=== PATIENT | male | born 1995 | race Caucasian/White ===

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

== ENCOUNTER 2019-01-14 02:35 | Emergency (ER) | payer OTHER ==
[~2019-01-14] VITALS: Ht 185.4 cm; Wt 128.0 kg
--- NOTE | 2019-01-14 02:43 | ED.ADGEN ---
Past History Past Medical History: No Pertinent History, Anxiety, Arrhythmia, Bipolar, Depression (BELEM BARAJAS MD) Past Surgical History: No Surgical History (BELEM BARAJAS MD) Smoking: Non-smoker Alcohol Use: None Drug Use: None (BELEM BARAJAS MD) Adult General Chief Complaint Chief Complaint ".. I was just doing stuff on my computer .. and I got a fast heart rate.. and some chest pain.. it was 7-.. it is only 3/10 now.. here in the center of my chest.. " (BELEM BARAJAS MD) HPI HPI Patient is a 23 year old male who presents with central chest pain. No radiation. Some pleuritic component. No hx of trauma. No hx cough. Pt. has hx of SVT- which he take Metoprolol . Pt. has been compliant with his Metoprol. Pt. normally follow with Dr. Newell. (BELEM BARAJAS MD) Review of Systems Review of Systems Constitutional: Denies fever or chills [] Eyes: Denies change in visual acuity, redness, or eye pain [] HENT: Denies nasal congestion or sore throat [] Respiratory: complaints of shortness of breath [] Cardiovascular: No additional information not addressed in HPI [] GI: Denies abdominal pain, nausea, vomiting, bloody stools or diarrhea [] : Denies dysuria or hematuria [] Musculoskeletal: Denies back pain or joint pain [] Integument: Denies rash or skin lesions [] Neurologic: Denies headache, focal weakness or sensory changes [] Endocrine: Denies polyuria or polydipsia [] All other systems were reviewed and found to be within normal limits, except as documented in this note. (BELEM BARAJAS MD) Family History Family History Sister has hx WPW (BELEM BARAJAS MD) Current Medications Current Medications Current Medications Medications (Trade) Dose Ordered Sig/Dana Start Time Stop Time Status Last Admin Dose Admin Enoxaparin Sodium (Lovenox 120mg Syringe) 120 mg 1X ONCE 01/14/19 04:45 01/14/19 04:46 DC 01/14/19 04:35 120 MG Info (Do NOT chart on this entry -- for MONITORING) 1 each PRN DAILY PRN 01/14/19 05:00 01/16/19 04:59 Iohexol (Omnipaque 350 Mg/ml) 100 ml 1X ONCE 01/14/19 05:00 01/14/19 05:01 DC 01/14/19 04:58 100 ML Ketorolac Tromethamine (Toradol 30mg Vial) 30 mg 1X ONCE 01/14/19 03:00 01/14/19 03:01 DC 01/14/19 03:14 30 MG Lactated Ringer's 1,000 ml @ 1,000 mls/hr Q1H 01/14/19 03:00 01/14/19 03:59 DC 01/14/19 03:14 1,000 MLS/HR Lorazepam (Ativan) 1 mg 1X ONCE 01/14/19 03:00 01/14/19 03:01 DC 01/14/19 03:14 1 MG (RIOS BYRNE DO) Current Medications See Nursing for home meds (BELEM BARAJAS MD) Allergies Allergies Allergies Coded Allergies Type Severity Reaction Last Updated Verified Sulfa (Sulfonamide Antibiotics) Allergy Intermediate Hives 11/01/14 Yes (RIOS BYRNE DO) Physical Exam Physical Exam Constitutional: Well developed, well nourished, moderate acute emotional distress, non-toxic appearance. [] HENT: Normocephalic, atraumatic, bilateral external ears normal, oropharynx moist, no oral exudates, nose normal. [] Eyes: PERRLA, EOMI, conjunctiva normal, no discharge. [] Neck: Normal range of motion, no tenderness, supple, no stridor. [] Cardiovascular:Heart rate regular rhythm, no murmur [] Lungs & Thorax: Bilateral breath sounds clear to auscultation [] Abdomen: Bowel sounds normal, soft, no tenderness, no masses, no pulsatile masses. [] Skin: Warm, dry, no erythema, no rash. [] Back: No tenderness, no CVA tenderness. [] Extremities: No tenderness, no cyanosis, no clubbing, ROM intact, no edema. [] Neurologic: Alert and oriented X 3, normal motor function, normal sensory function, no focal deficits noted. [] Psychologic: Affect anxious, judgement normal, mood normal. [] (BELEM BARAJAS MD) Current Patient Data Vital Signs Vital Signs Date Time Temp Pulse Resp B/P (MAP) Pulse Ox O2 Delivery O2 Flow Rate FiO2 01/14/19 05:36 60 18 122/66 (84) 96 Room Air 01/14/19 02:35 98.7 ([facility]) Lab Results Laboratory Tests Test 01/14/19 02:45 01/14/19 03:10 01/14/19 05:45 White Blood Count 9.0 x10^3/uL (4.0-11.0) Red Blood Count 5.16 x10^6/uL (4.30-5.70) Hemoglobin 15.5 g/dL (13.0-17.5) Hematocrit 46.4 % (39.0-53.0) Mean Corpuscular Volume 90 fL (79-100) Mean Corpuscular Hemoglobin 30 pg (25-35) Mean Corpuscular Hemoglobin Concent 33 g/dL (31-37) Red Cell Distribution Width 12.8 % (11.5-14.5) Platelet Count 244 x10^3/uL (140-400) Neutrophils (%) (Auto) 49 % (31-73) Lymphocytes (%) (Auto) 37 % (24-48) Monocytes (%) (Auto) 10 % (0-9) H Eosinophils (%) (Auto) 3 % (0-3) Basophils (%) (Auto) 1 % (0-3) Neutrophils # (Auto) 4.5 x10^3uL (1.8-7.7) Lymphocytes # (Auto) 3.4 x10^3/uL (1.0-4.8) Monocytes # (Auto) 0.9 x10^3/uL (0.0-1.1) Eosinophils # (Auto) 0.3 x10^3/uL (0.0-0.7) Basophils # (Auto) 0.1 x10^3/uL (0.0-0.2) Prothrombin Time 10.3 SEC (9.4-11.4) Prothrombin Time INR 1.0 (0.9-1.1) PTT 26 SEC (23-33) D-Dimer (Vonda) 0.56 mg/L (0.00-0.50) H Sodium Level 140 mmol/L (136-145) Potassium Level 3.6 mmol/L (3.5-5.1) Chloride Level 103 mmol/L (98-107) Carbon Dioxide Level 28 mmol/L (21-32) Anion Gap 9 (6-14) Blood Urea Nitrogen 10 mg/dL (8-26) Creatinine 0.9 mg/dL (0.7-1.3) Estimated GFR (Cockcroft-Gault) 106.5 Glucose Level 85 mg/dL (70-99) Calcium Level 9.6 mg/dL (8.5-10.1) Magnesium Level 2.3 mg/dL (1.8-2.4) Total Bilirubin 0.4 mg/dL (0.2-1.0) Direct Bilirubin 0.1 mg/dL (0.0-0.2) Aspartate Amino Transferase (AST) 33 U/L (15-37) Alanine Aminotransferase (ALT) 59 U/L (16-63) Alkaline Phosphatase 114 U/L (46-116) Creatine Kinase 328 U/L (39-308) H Troponin I Quantitative < 0.017 ng/mL (0-0.055) < 0.017 ng/mL (0-0.055) LB-Mpo-W-Type Natriuretic Peptide 19 pg/mL (0-124) Total Protein 8.2 g/dL (6.4-8.2) Albumin 4.1 g/dL (3.4-5.0) Lipase 107 U/L (73-393) Urine Collection Type Unknown Urine Color Yellow Urine Clarity Clear Urine pH 6.0 Urine Specific [place] >=1.030 Urine Protein Neg (NEG-TRACE) Urine Glucose (UA) Neg mg/dL (NEG) Urine Ketones (Stick) Neg mg/dL (NEG) Urine Blood Trace (NEG) Urine Nitrite Neg (NEG) Urine Bilirubin Neg (NEG) Urine Urobilinogen Dipstick 0.2 mg/dL (0.2 mg/dL) Urine Leukocyte Esterase Neg (NEG) Urine RBC 1-2 /HPF (0-2) Urine WBC 0 /HPF (0-4) Urine Squamous Epithelial Cells Occ /LPF Urine Bacteria 0 /HPF (0-FEW) Urine Mucus Marked /LPF Urine Opiates Screen Neg (NEG) Urine Methadone Screen Neg (NEG) Urine Barbiturates Neg (NEG) Urine Phencyclidine Screen Neg (NEG) Urine Amphetamine/Methamphetamine Neg (NEG) Urine Benzodiazepines Screen Neg (NEG) Urine Cocaine Screen Neg (NEG) Urine Cannabinoids Screen Neg (NEG) Urine Ethyl Alcohol Neg (NEG) (RIOS BYRNE DO) Lab Results Laboratory Tests Test 01/14/19 02:45 01/14/19 03:10 01/14/19 05:45 White Blood Count 9.0 x10^3/uL (4.0-11.0) Red Blood Count 5.16 x10^6/uL (4.30-5.70) Hemoglobin 15.5 g/dL (13.0-17.5) Hematocrit 46.4 % (39.0-53.0) Mean Corpuscular Volume 90 fL (79-100) Mean Corpuscular Hemoglobin 30 pg (25-35) Mean Corpuscular Hemoglobin Concent 33 g/dL (31-37) Red Cell Distribution Width 12.8 % (11.5-14.5) Platelet Count 244 x10^3/uL (140-400) Neutrophils (%) (Auto) 49 % (31-73) Lymphocytes (%) (Auto) 37 % (24-48) Monocytes (%) (Auto) 10 % (0-9) H Eosinophils (%) (Auto) 3 % (0-3) Basophils (%) (Auto) 1 % (0-3) Neutrophils # (Auto) 4.5 x10^3uL (1.8-7.7) Lymphocytes # (Auto) 3.4 x10^3/uL (1.0-4.8) Monocytes # (Auto) 0.9 x10^3/uL (0.0-1.1) Eosinophils # (Auto) 0.3 x10^3/uL (0.0-0.7) Basophils # (Auto) 0.1 x10^3/uL (0.0-0.2) Prothrombin Time 10.3 SEC (9.4-11.4) Prothrombin Time INR 1.0 (0.9-1.1) PTT 26 SEC (23-33) D-Dimer (Vonda) 0.56 mg/L (0.00-0.50) H Sodium Level 140 mmol/L (136-145) Potassium Level 3.6 mmol/L (3.5-5.1) Chloride Level 103 mmol/L (98-107) Carbon Dioxide Level 28 mmol/L (21-32) Anion Gap 9 (6-14) Blood Urea Nitrogen 10 mg/dL (8-26) Creatinine 0.9 mg/dL (0.7-1.3) Estimated GFR (Cockcroft-Gault) 106.5 Glucose Level 85 mg/dL (70-99) Calcium Level 9.6 mg/dL (8.5-10.1) Magnesium Level 2.3 mg/dL (1.8-2.4) Total Bilirubin 0.4 mg/dL (0.2-1.0) Direct Bilirubin 0.1 mg/dL (0.0-0.2) Aspartate Amino Transferase (AST) 33 U/L (15-37) Alanine Aminotransferase (ALT) 59 U/L (16-63) Alkaline Phosphatase 114 U/L (46-116) Creatine Kinase 328 U/L (39-308) H Troponin I Quantitative < 0.017 ng/mL (0-0.055) < 0.017 ng/mL (0-0.055) EJ-Gpc-N-Type Natriuretic Peptide 19 pg/mL (0-124) Total Protein 8.2 g/dL (6.4-8.2) Albumin 4.1 g/dL (3.4-5.0) Triglycerides Level 73 mg/dL (0-150) Cholesterol Level 171 mg/dL (0-200) LDL Cholesterol, Calculated 120 mg/dL (0-100) H VLDL Cholesterol, Calculated 14 mg/dL (0-40) Non-HDL Cholesterol Calculated 134 mg/dL (0-129) H HDL Cholesterol 37 mg/dL (40-60) L Cholesterol/HDL Ratio 4.0 Lipase 107 U/L (73-393) Thyroid Stimulating Hormone (TSH) 3.002 uIU/mL (0.358-3.740) Urine Collection Type Unknown Urine Color Yellow Urine Clarity Clear Urine pH 6.0 Urine Specific [place] >=1.030 Urine Protein Neg (NEG-TRACE) Urine Glucose (UA) Neg mg/dL (NEG) Urine Ketones (Stick) Neg mg/dL (NEG) Urine Blood Trace (NEG) Urine Nitrite Neg (NEG) Urine Bilirubin Neg (NEG) Urine Urobilinogen Dipstick 0.2 mg/dL (0.2 mg/dL) Urine Leukocyte Esterase Neg (NEG) Urine RBC 1-2 /HPF (0-2) Urine WBC 0 /HPF (0-4) Urine Squamous Epithelial Cells Occ /LPF Urine Bacteria 0 /HPF (0-FEW) Urine Mucus Marked /LPF Urine Opiates Screen Neg (NEG) Urine Methadone Screen Neg (NEG) Urine Barbiturates Neg (NEG) Urine Phencyclidine Screen Neg (NEG) Urine Amphetamine/Methamphetamine Neg (NEG) Urine Benzodiazepines Screen Neg (NEG) Urine Cocaine Screen Neg (NEG) Urine Cannabinoids Screen Neg (NEG) Urine Ethyl Alcohol Neg (NEG) (BELEM BARAJAS MD) EKG EKG I interpretation EKG shows a sinus rhythm at 76 bpm. No acute morphology[] (BELEM BARAJAS MD) Radiology/Procedures Radiology/Procedures My interpretation of CXR shows[]no acute cardiopulmonary changes (BELEM BARAJAS MD) Radiology/Procedures PROCEDURE: CT ANGIOGRAPHY CHEST INDICATION: Chest pain COMPARISON: None. TECHNIQUE: Axial CT images obtained through the chest. Intravenous contrast utilized. Angiogram 3D images processed per protocol. One or more of the following individualized dose reduction techniques were utilized for this examination: 1. Automated exposure control; 2. Adjustment of the mA and/or kV according to patient size; 3. Use of iterative reconstruction technique. FINDINGS: Groundglass opacities bilaterally. Motion limits this exam. There are some apparent cystic changes within the right lung. Partially visualized liver is low density. Nonspecific but can be seen with fatty infiltration. There are some enlarged lymph nodes in the bilateral axilla. For example one of them on the left measures up to about 11 mm short axis. Motion obscures portions of the a ascending thoracic aorta. Aorta appears nonaneurysmal. No embolus in main, right main or left main pulmonary artery. Patient motion obscures more peripheral vessels. At the right upper chest there is a region of suspected pleural thickening measuring up to about 8 mm. Similar appearance on the left. IMPRESSION: Motion limits the exam. No embolus in the main, right main or left main pulmonary artery but more peripheral evaluation is obscured by motion. Groundglass opacities of the bilateral lungs. Can be secondary to mild edema or infiltrate. There are some enlarged lymph nodes in the bilateral axilla. Given the patient's age these could be reactive in nature unless there is a history or risk factors for neoplasm. Follow-up could be obtained to ensure no growth. Liver is low density. Nonspecific but can be seen with fatty infiltration. There is some suspected pleural thickening seen bilaterally at the upper chest. (RIOS BYRNE DO) Course & Med Decision Making Course & Med Decision Making Pertinent Labs and Imaging studies reviewed. (See chart for details) Pt. requesting discharge 0600. Pt. Exhibits [employer] capacity. Pt. agrees to wait until CT result s and a repeat trop. Discussed risks and need for followup. Pt. to take a daily aspirin. Follow up with primary. Consider out pt. stress testing. Return if any concerns. Pt. endorsed to Dr. Byrne at shift change. [] (BELEM BARAJAS MD) Course & Med Decision Making Received patient at 6 AM. Agree with previous H&P. Repeat troponin was normal. There is no evidence of this being an acute coronary syndrome. CTA of the chest was negative, no evidence of pulmonary embolism. Nonspecific groundglass opacities are noted, however patient has no fever, no cough, no elevated white count so doubt that this is due to a bacterial infection at this time. No evidence of esophageal rupture. No evidence of pneumothorax. No hemo-or pneumothorax on imaging. No evidence of a dissecting thoracic aneurysm. (RIOS BYRNE DO) Final Impression Final Impression 1. Chest pain 2. History of paroxysmal SVT 3. Mild elevation in d-dimer 0.56 4. Hx Bipolar 5. Hx Anxiety[] (BELEM BARAJAS MD) Final Impression Impression: Nonspecific chest pain (RIOS BYRNE DO) Dragon Disclaimer Dragon Disclaimer This electronic medical record was generated, in whole or in part, using a voice recognition dictation system. (BELEM BARAJAS MD) Discharge Summary Visit Information Final Diagnosis Problems Medical Problems: (1) Chest pain Status: Acute (BELEM BARAJAS MD) Brief Hospital Course Allergies Allergies Coded Allergies Type Severity Reaction Last Updated Verified Sulfa (Sulfonamide Antibiotics) Allergy Intermediate Hives 11/01/14 Yes (BELEM BARAJAS MD) Vital Signs Vital Signs Date Time Temp Pulse Resp B/P (MAP) Pulse Ox O2 Delivery O2 Flow Rate FiO2 01/14/19 06:30 67 18 126/70 (88) 96 Room Air 01/14/19 02:35 98.7 (BELEM BARAJAS MD) Lab Results Laboratory Tests Test 01/14/19 02:45 01/14/19 03:10 01/14/19 05:45 White Blood Count 9.0 x10^3/uL (4.0-11.0) Red Blood Count 5.16 x10^6/uL (4.30-5.70) Hemoglobin 15.5 g/dL (13.0-17.5) Hematocrit 46.4 % (39.0-53.0) Mean Corpuscular Volume 90 fL (79-100) Mean Corpuscular Hemoglobin 30 pg (25-35) Mean Corpuscular Hemoglobin Concent 33 g/dL (31-37) Red Cell Distribution Width 12.8 % (11.5-14.5) Platelet Count 244 x10^3/uL (140-400) Neutrophils (%) (Auto) 49 % (31-73) Lymphocytes (%) (Auto) 37 % (24-48) Monocytes (%) (Auto) 10 % (0-9) Eosinophils (%) (Auto) 3 % (0-3) Basophils (%) (Auto) 1 % (0-3) Neutrophils # (Auto) 4.5 x10^3uL (1.8-7.7) Lymphocytes # (Auto) 3.4 x10^3/uL (1.0-4.8) Monocytes # (Auto) 0.9 x10^3/uL (0.0-1.1) Eosinophils # (Auto) 0.3 x10^3/uL (0.0-0.7) Basophils # (Auto) 0.1 x10^3/uL (0.0-0.2) Prothrombin Time 10.3 SEC (9.4-11.4) Prothromb Time International Ratio 1.0 (0.9-1.1) Activated Partial Thromboplast Time 26 SEC (23-33) D-Dimer (Vonda) 0.56 mg/L (0.00-0.50) Sodium Level 140 mmol/L (136-145) Potassium Level 3.6 mmol/L (3.5-5.1) Chloride Level 103 mmol/L (98-107) Carbon Dioxide Level 28 mmol/L (21-32) Anion Gap 9 (6-14) Blood Urea Nitrogen 10 mg/dL (8-26) Creatinine 0.9 mg/dL (0.7-1.3) Estimated GFR (Cockcroft-Gault) 106.5 Glucose Level 85 mg/dL (70-99) Calcium Level 9.6 mg/dL (8.5-10.1) Magnesium Level 2.3 mg/dL (1.8-2.4) Total Bilirubin 0.4 mg/dL (0.2-1.0) Direct Bilirubin 0.1 mg/dL (0.0-0.2) Aspartate Amino Transf (AST/SGOT) 33 U/L (15-37) Alanine Aminotransferase (ALT/SGPT) 59 U/L (16-63) Alkaline Phosphatase 114 U/L (46-116) Creatine Kinase 328 U/L (39-308) Troponin I Quantitative < 0.017 ng/mL (0-0.055) < 0.017 ng/mL (0-0.055) MY-Ato-W-Type Natriuretic Peptide 19 pg/mL (0-124) Total Protein 8.2 g/dL (6.4-8.2) Albumin 4.1 g/dL (3.4-5.0) Triglycerides Level 73 mg/dL (0-150) Cholesterol Level 171 mg/dL (0-200) LDL Cholesterol, Calculated 120 mg/dL (0-100) VLDL Cholesterol, Calculated 14 mg/dL (0-40) Non-HDL Cholesterol Calculated 134 mg/dL (0-129) HDL Cholesterol 37 mg/dL (40-60) Cholesterol/HDL Ratio 4.0 Lipase 107 U/L (73-393) Thyroid Stimulating Hormone (TSH) 3.002 uIU/mL (0.358-3.740) Urine Collection Type Unknown Urine Color Yellow Urine Clarity Clear Urine pH 6.0 Urine Specific [place] >=1.030 Urine Protein Neg (NEG-TRACE) Urine Glucose (UA) Neg mg/dL (NEG) Urine Ketones (Stick) Neg mg/dL (NEG) Urine Blood Trace (NEG) Urine Nitrite Neg (NEG) Urine Bilirubin Neg (NEG) Urine Urobilinogen Dipstick 0.2 mg/dL (0.2 mg/dL) Urine Leukocyte Esterase Neg (NEG) Urine RBC 1-2 /HPF (0-2) Urine WBC 0 /HPF (0-4) Urine Squamous Epithelial Cells Occ /LPF Urine Bacteria 0 /HPF (0-FEW) Urine Mucus Marked /LPF Urine Opiates Screen Neg (NEG) Urine Methadone Screen Neg (NEG) Urine Barbiturates Neg (NEG) Urine Phencyclidine Screen Neg (NEG) Urine Amphetamine/Methamphetamine Neg (NEG) Urine Benzodiazepines Screen Neg (NEG) Urine Cocaine Screen Neg (NEG) Urine Cannabinoids Screen Neg (NEG) Urine Ethyl Alcohol Neg (NEG) (BELEM BARAJAS MD) Brief Hospital Course Mr. Wallace is a 23 old male who presented with non-specific chest pain. (BELEM BARAJAS MD) Discharge Information Condition at Discharge: Stable Disposition/Orders: D/C to Home (BELEM BARAJAS MD) Dischare Medications Current Medications Lactated Ringer's 1,000 ml @ 1,000 mls/hr Q1H IV Last administered on 01/14/19at 03:14; Admin Dose 1,000 MLS/HR; Start 01/14/19 at 03:00; Stop 01/14/19 at 03:59; Status DC Ketorolac Tromethamine (Toradol 30mg Vial) 30 mg 1X ONCE IV Last administered on 01/14/19at 03:14; Admin Dose 30 MG; Start 01/14/19 at 03:00; Stop 01/14/19 at 03:01; Status DC Lorazepam (Ativan) 1 mg 1X ONCE PO Last administered on 01/14/19at 03:14; Admin Dose 1 MG; Start 01/14/19 at 03:00; Stop 01/14/19 at 03:01; Status DC Enoxaparin Sodium (Lovenox 120mg Syringe) 120 mg 1X ONCE SQ Last administered on 01/14/19at 04:35; Admin Dose 120 MG; Start 01/14/19 at 04:45; Stop 01/14/19 at 04:46; Status DC Iohexol (Omnipaque 350 Mg/ml) 100 ml 1X ONCE IV Last administered on 01/14/19at 04:58; Admin Dose 100 ML; Start 01/14/19 at 05:00; Stop 01/14/19 at 05:01; Status DC Info (Do NOT chart on this entry -- for MONITORING) 1 each PRN DAILY PRN MC SEE COMMENTS; Start 01/14/19 at 05:00; Stop 01/14/19 at 06:36; Status DC Active Scripts Active Zoloft (Sertraline Hcl) 25 Mg Tablet 1 Tab PO DAILY (BELEM BARAJAS MD) Dragon Disclaimer This chart was dictated in whole or in part using Voice Recognition software in a busy, high-work load, and often noisy Emergency Department environment. It may contain unintended and wholly unrecognized errors or omissions. (BELEM BARAJAS MD) BELEM BARAJAS MD Jan 14, 2019 02:43 RIOS BYRNE DO Jan 14, 2019 06:27
[2019-01-14] MEDS ORDERED: IV RINGERS SOLUTION,LACTATED 1,000 ML IV SCH (03:00)
[2019-01-14] MEDS ORDERED: KETOROLAC 30 MG/ML VIAL. IV ONE (03:00)
[2019-01-14] MEDS ORDERED: LORazepam 1 MG TABLET PO ONE (03:00)
[2019-01-14 03:30] LABS: BASO # 0.1 x10^3/uL (0.0-0.2); BASO % 1 % (0-3); EOS # 0.3 x10^3/uL (0.0-0.7); EOS % 3 % (0-3); HEMATOCRIT 46.4 % (39.0-53.0); HEMOGLOBIN 15.5 g/dL (13.0-17.5); LYMPH # 3.4 x10^3/uL (1.0-4.8); LYMPH % 37 % (24-48); MEAN CORPUSCULAR HEMOGLOBIN 30 pg (25-35); MEAN CORPUSCULAR HGB CONC 33 g/dL (31-37); MEAN CORPUSCULAR VOLUME 90 fL (79-100); MONO # 0.9 x10^3/uL (0.0-1.1); MONO % 10 % (0-9); NEUT # 4.5 x10^3uL (1.8-7.7); NEUT % 49 % (31-73); PLATELET COUNT 244 x10^3/uL (140-400); RED BLOOD COUNT 5.16 x10^6/uL (4.30-5.70); RED CELL DISTRIBUTION WIDTH 12.8 % (11.5-14.5)
[2019-01-14 03:35] LABS: BARBITURATES NEG (NEG); BENZODIAZEPINES NEG (NEG); CANNABINOIDS NEG (NEG); COCAINE NEG (NEG); METHADONE NEG (NEG); OPIATES NEG (NEG); PHENCYCLIDINE NEG (NEG)
[2019-01-14 03:37] LABS: AMPHETAMINE/METHAMPHETAMINE NEG (NEG)
[2019-01-14 03:50] LABS: ALBUMIN 4.1 g/dL (3.4-5.0); CALCIUM 9.6 mg/dL (8.5-10.1); CREATININE 0.9 mg/dL (0.7-1.3); DIRECT BILIRUBIN 0.1 mg/dL (0.0-0.2); GFR 106.5; MAGNESIUM 2.3 mg/dL (1.8-2.4); POTASSIUM 3.6 mmol/L (3.5-5.1); TOTAL BILIRUBIN 0.4 mg/dL (0.2-1.0); TOTAL PROTEIN 8.2 g/dL (6.4-8.2)
[2019-01-14 04:03] LABS: BACTERIA,URINE 0 /HPF (0-FEW); BILIRUBIN,URINE NEG (NEG); CLARITY,URINE CLEAR; COLOR,URINE YELLOW; GLUCOSE,URINE NEG (NEG); NITRITE,URINE NEG (NEG); UROBILINOGEN,URINE 0.2 mg/dL (0.2 mg/dL); WBC,URINE 0 /HPF (0-4)
[2019-01-14 04:04] LABS: SQUAMOUS EPITHELIAL CELL,UR OCC /LPF
[2019-01-14] MEDS ORDERED: ENOXAPARIN ** NOTE DOSE ** SYRINGE SQ ONE (04:45)
[2019-01-14] MEDS ORDERED: IOHEXOL 350 MG/ML 100 ML VIAL. IV ONE (05:00)
[2019-01-14] MEDS ORDERED: CONTRAST GIVEN MC PRN (05:00)
--- NOTE | 2019-01-14 06:19 | RAD ---
INDICATION: Chest pain COMPARISON: None. TECHNIQUE: Axial CT images obtained through the chest. Intravenous contrast utilized. Angiogram 3D images processed per protocol. One or more of the following individualized dose reduction techniques were utilized for this examination: 1. Automated exposure control; 2. Adjustment of the mA and/or kV according to patient size; 3. Use of iterative reconstruction technique. FINDINGS: Groundglass opacities bilaterally. Motion limits this exam. There are some apparent cystic changes within the right lung. Partially visualized liver is low density. Nonspecific but can be seen with fatty infiltration. There are some enlarged lymph nodes in the bilateral axilla. For example one of them on the left measures up to about 11 mm short axis. Motion obscures portions of the a ascending thoracic aorta. Aorta appears nonaneurysmal. No embolus in main, right main or left main pulmonary artery. Patient motion obscures more peripheral vessels. At the right upper chest there is a region of suspected pleural thickening measuring up to about 8 mm. Similar appearance on the left. IMPRESSION: Motion limits the exam. No embolus in the main, right main or left main pulmonary artery but more peripheral evaluation is obscured by motion. Groundglass opacities of the bilateral lungs. Can be secondary to mild edema or infiltrate. There are some enlarged lymph nodes in the bilateral axilla. Given the patient's age these could be reactive in nature unless there is a history or risk factors for neoplasm. Follow-up could be obtained to ensure no growth. Liver is low density. Nonspecific but can be seen with fatty infiltration. There is some suspected pleural thickening seen bilaterally at the upper chest. Electronically signed by: Brenton Foy MD (01/14/2019 6:17 AM) [id number]
[2019-01-14 06:30] VITALS: BP 126/70
--- NOTE | 2019-01-14 08:20 | RAD ---
Exam performed: 2 views of the chest. Indication: Shortness of air Date of Service: 01/14/2019 2:37 AM . Comparison : None available Findings: PA and lateral radiographs of the chest reveal a normal cardiomediastinal contour. The lungs are clear. No pleural fluid is seen. The visualized osseous structures are unremarkable. Impression: No acute cardiopulmonary process seen. Electronically signed by: Pallavi Roldan MD (01/14/2019 8:17 AM) [facility]
== END 2019-01-14 06:30 | disposition home or self-care (01) ==
LOC: ER 02:35
DX: R07.89 Other chest pain (principal); R79.1 Abnormal coagulation profile; F41.9 Anxiety disorder, unspecified; F31.9 Bipolar disorder, unspecified; Z88.2 Allergy status to sulfonamides
CPT/HCPCS: 36415; 71046; 71275; 80048; 80061; 80076; 80307; 81001; 82550; 83690; 83735; 83880; 84443; 84484; 85025; 85379; 85610; 85730; 93005; 96372; 96374; 99285; J1650; J1885; J7120; Q9967

== ENCOUNTER 2020-11-17 18:22 | Emergency (ER) | payer OTHER ==
[~2020-11-17] VITALS: Ht 185.4 cm; Wt 136.7 kg
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
--- NOTE | 2020-11-17 19:23 | RAD ---
EXAM: Right hand, 3 views. HISTORY: Pain. COMPARISON: None. FINDINGS: 3 views of the right hand are obtained. There is no fracture, dislocation or subluxation. N o foreign body is seen. IMPRESSION: No acute osseous finding. Electronically signed by: Rhona Maldonado MD (11/17/2020 7:21 PM) [facility]
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
[2020-11-17 19:52] VITALS: BP 132/79
== END 2020-11-17 19:51 | disposition home or self-care (01) ==
LOC: ER 18:22
DX: S60.031A Contusion of right middle finger without damage to nail, initial encounter (principal); M54.2 Cervicalgia; R51.9 Headache, unspecified; Z88.2 Allergy status to sulfonamides; V43.52XA Car driver injured in collision with other type car in traffic accident, initial encounter; Y93.89 Activity, other specified; Y92.488 Other paved roadways as the place of occurrence of the external cause; Y99.8 Other external cause status
CPT/HCPCS: 70450; 72125; 73130; 99284-25; 99285-25

== ENCOUNTER 2021-04-26 00:16 | Emergency (ER) | payer OTHER ==
[~2021-04-26] VITALS: Ht 185.4 cm; Wt 132.7 kg
--- NOTE | 2021-04-26 00:25 | PHYS DOC ---
Past History Past Medical History: Anxiety, Hypertension Past Surgical History: No Surgical History Smoking: Non-smoker Alcohol Use: None Drug Use: None General Adult HPI: HPI: ".. My teeth are killing me tonight... I know I got some cavities.. but this unreal.. " Patient is a 25 year old male who presents with above hx and complaints of den judie pain. Patient localizes pain to teeth 1, 7 and 8. Patient relates pain in these specific teeth is severe 10 out of 10. Patient has other cavities and some findings of gingivitis. Has no trismus. No history of trauma. Has extreme sensitivity to heat or cold. Patient has not scheduled follow-up with dentist as yet. Patient has past medical history of anxiety and hypertension. Pt. follows with Dr. Roldan Review of Systems: Review of Systems: Constitutional: Denies fever or chills Eyes: Denies change in visual acuity HENT: Denies nasal congestion or sore throat. Complains of dental pain Respiratory: Denies cough or shortness of breath Cardiovascular: Denies chest pain or edema GI: Denies abdominal pain, nausea, vomiting, bloody stools or diarrhea : Denies dysuria Musculoskeletal: Denies back pain or joint pain Integument: Denies rash Neurologic: Denies headache, focal weakness or sensory changes Endocrine: Denies polyuria or polydipsia Lymphatic: Denies swollen glands Psychiatric: Denies depression or anxiety Family History: Family History: Noncontributory to presentation. Current Medications: Current Meds: See nursing for home meds Allergies: Allergies: Allergies Coded Allergies Type Severity Reaction Last Updated Verified Sulfa (Sulfonamide Antibiotics) Allergy Intermediate Hives 11/01/14 Yes Physical Exam: PE: Constitutional: Well developed, well nourished, in acute distress, non-toxic appearance. [] HENT: Normocephalic, atraumatic, bilateral external ears normal, oropharynx moist, no oral exudates, nose normal. Multiple dental cavities and gingivitis. Localized pain primarily the teeth 1, 7 and 8. No trismus. Eyes: PERRLA, EOMI, conjunctiva normal, no discharge. [] Neck: Normal range of motion, no tenderness, supple, no stridor. [] Cardiovascular:Heart rate regular rhythm, no murmur [] Lungs & Thorax: Bilateral breath sounds clear to auscultation [] Abdomen: Bowel sounds normal, soft, no tenderness, no masses, no pulsatile masses. Obese. Skin: Warm, dry, no erythema, no rash. [] Back: No tenderness, no CVA tenderness. [] Extremities: No tenderness, no cyanosis, no clubbing, ROM intact, no edema. [] Neurologic: Alert and oriented X 3, normal motor function, normal sensory function, no focal deficits noted. [] Psychologic: Affect anxious, judgement normal, mood normal. [] EKG: EKG: [] Radiology/Procedures: Radiology/Procedures: [] Heart Score: C/O Chest Pain: N/A Risk Factors: Risk Factors: DM, Current or recent (<one month) smoker, HTN, HLP, family history of CAD, obesity. Risk Scores: Score 0 - 3: 2.5% MACE over next 6 weeks - Discharge Home Score 4 - 6: 20.3% MACE over next 6 weeks - Admit for Clinical Observation Score 7 - 10: 72.7% MACE over next 6 weeks - Early Invasive Strategies Course & Med Decision Making: Course & Med Decision Making Pertinent Labs and Imaging studies reviewed. (See chart for details) Patient take Tylenol and ibuprofen for pain. Patient take Keflex 500 mg 3 times a day. Patient advised must follow-up with dentist or oral surgeon. Advised nothing done in the emergency room tonight will fix the underlying problem of his dental pain. Must see a dentist. If unable to get into a local dentist consider follow-up. [facility] dental school. Or oral surgery for extraction of offending teeth. Impression: 1. Dental pain 2. Gingivitis 3. Dental cavities 4. Dental infections-suspect possible abscess [] Dragon Disclaimer: Dragon Disclaimer: This electronic medical record was generated, in whole or in part, using a voice recognition dictation system. Departure Departure: Referrals: FRANCIS ROLDAN MD (PCP) Scripts Cephalexin (KEFLEX) 500 Mg Capsule 1 CAP PO TID for dental infection, #30 CAP Prov: BELEM BARAJAS MD 04/26/21 Linette Disclaimer This chart was dictated in whole or in part using Voice Recognition software in a busy, high-work load, and often noisy Emergency Department environment. It may contain unintended and wholly unrecognized errors or omissions. BELEM BARAJAS MD Apr 26, 2021 00:25
[2021-04-26] MEDS ORDERED: CEPH500C PO (00:55)
[2021-04-26] MEDS ORDERED: HYDROcodon/IBUPROFEN 7.5/200MG 1 TAB TABLET PO ONE (01:00)
[2021-04-26] MEDS ORDERED: CEPHALEXIN 250 MG CAPSULE PO ONE (01:00)
[2021-04-26 01:14] VITALS: BP 117/77
== END 2021-04-26 01:15 | disposition home or self-care (01) ==
LOC: ER 00:16
DX: K05.10 Chronic gingivitis, plaque induced (principal); K02.9 Dental caries, unspecified; K04.7 Periapical abscess without sinus; I10 Essential (primary) hypertension; F41.9 Anxiety disorder, unspecified; Z88.2 Allergy status to sulfonamides
CPT/HCPCS: 99283

== ENCOUNTER 2021-12-05 03:51 | Emergency (ER) | payer OTHER ==
[~2021-12-05] VITALS: Ht 185.4 cm; Wt 132.6 kg
[~2021-12-05 03:51] MED LIST changes: +CEPH500C PO
--- NOTE | 2021-12-05 03:56 | PHYS DOC ---
Past History Past Medical History: Anxiety, Hypertension Past Surgical History: No Surgical History Smoking: Non-smoker Alcohol Use: None Drug Use: None Adult General HPI HPI Patient is an otherwise healthy 26-year-old who presents with a chief complaint of sore throat, mild headache last couple of days. States his sister did have strep throat. States he took 600 mg of ibuprofen 3 hours ago. States he is able to eat and drink normally. States he is making urine and stool normally. States he is COVID vaccinated. Review of Systems Review of Systems Review of systems otherwise unremarkable except noted in HPI Allergies Allergies Allergies Coded Allergies Type Severity Reaction Last Updated Verified Sulfa (Sulfonamide Antibiotics) Allergy Intermediate Hives 11/01/14 Yes Physical Exam Physical Exam Constitutional: Well developed, well nourished, no acute distress, non-toxic appearance. [] HENT: Normocephalic, atraumatic, bilateral external ears normal, oropharynx moist, significant posterior oropharyngeal erythema, no oral exudates, nose normal. [] Eyes: conjunctiva normal, no discharge. [] Neck: Normal range of motion, no tenderness, supple, no stridor, left-sided cervical lymphadenopathy. [] Cardiovascular:Heart rate regular rhythm, no murmur [] Lungs & Thorax: Bilateral breath sounds clear to auscultation [] Abdomen: soft, no tenderness, no masses, no pulsatile masses. [] Skin: Warm, dry, no erythema, no rash. [] Extremities: No tenderness, no cyanosis, no clubbing, ROM intact, no edema. [] Neurologic: Alert and oriented X 3, normal motor function, normal sensory function, no focal deficits noted. [] Psychologic: Affect normal, judgement normal, mood normal. [] EKG EKG [] Radiology/Procedures Radiology/Procedures [] Heart Score C/O Chest Pain: No Risk Factors: Risk Factors: DM, Current or recent (<one month) smoker, HTN, HLP, family history of CAD, obesity. Risk Scores: Risk Factors: DM, Current or recent (<one month) smoker, HTN, HLP, family history of CAD, obesity. Course & Med Decision Making Course & Med Decision Making Patient is a 26-year-old male who presents with cough and sore throat for the last couple days Vital signs nonconcerning. Physical exam noted above. Centor criteria of 4 with sister who has strep throat. Started on amoxicillin for strep pharyngitis. Given medications for symptom control. Discussed symptom control at home Advised to follow-up with primary care next week. Gave return precautions to the ED. Patient grateful, verbalized understanding and agreed with plan of discharge Linette Disclaimer Linette Disclaimer This electronic medical record was generated, in whole or in part, using a voice recognition dictation system. Departure Departure: Impression: Primary Impression: Pharyngitis Disposition: HOME / SELF CARE / HOMELESS Condition: STABLE Referrals: FRANCIS ROLDAN MD (PCP) Patient Instructions: Viral and Bacterial Pharyngitis Additional Instructions: Thank you for coming into the emergency department tonight and allowing us to take care of you. Please read the attached information carefully to go over things we discussed. Please take your antibiotics as prescribed and until gone. You can use 1000 mg of Tylenol every 8 hours, 600 mg of ibuprofen every 6 hours, 50 mg of Benadryl every 6 hours. It is also important to get a good cough drop, like Cepacol with an anesthetic in it. Please follow-up with your primary care physician next week. Please come in with new or concerning symptoms as discussed. Scripts Amoxicillin (AMOXICILLIN) 500 Mg Capsule 1 CAP PO BID for strep throat for 10 Days, #19 CAP Prov: ADALGISA BENNETT MD 12/05/21 ADALGISA BENNETT MD December 05, 2021 03:56
[2021-12-05 04:05] VITALS: BP 112/79
[2021-12-05] MEDS ORDERED: AMOX500C PO (04:15)
[2021-12-05] MEDS: ACETAMINOPHEN/CODEINE 300/30MG 4TABLET STARTPACK. PO ONE (04:26)
[2021-12-05] MEDS: diphenhydrAMINE HCL 25 MG CAPSULE PO ONE (04:26)
[2021-12-05] MEDS: AMOXICILLIN 250 MG CAPSULE PO ONE (04:27)
[2021-12-05] MEDS: DEXAMETHASONE 4 MG TABLET PO ONE (04:28)
== END 2021-12-05 04:32 | disposition home or self-care (01) ==
LOC: ER 03:51
DX: J02.9 Acute pharyngitis, unspecified (principal); R51.9 Headache, unspecified; F41.9 Anxiety disorder, unspecified; I10 Essential (primary) hypertension; Z88.2 Allergy status to sulfonamides
CPT/HCPCS: 99284; J8540; Q0163